=== PATIENT | male | born 1960 | race Two or more races ===

== ENCOUNTER 2017-07-24 09:06 | Outpatient (CLI) | payer OTHER ==
[2017-07-24 10:01] LABS: HEMOGLOBIN 15.7 g/dL (12.0-18.0); MEAN CORPUSCULAR HEMOGLOBIN 32 pg (27-31); MEAN CORPUSCULAR HGB CONC 33 g/dL (33-37); MEAN CORPUSCULAR VOLUME 95 fL (80-94); PLATELET COUNT (AUTO) 151 K/uL (140-450); RED BLOOD CELL COUNT(AUTO) 4.94 MIL/uL (4.20-6.10); RED CELL DISTRIBUTION WIDTH 11.9 % (11.6-13.7); WHITE BLOOD COUNT (AUTO) 5.5 K/uL (4.8-10.8)
[2017-07-24 10:34] LABS: ANION GAP 10.1 (8-16); CARBON DIOXIDE 29.3 mmol/L (21-32); CHOL/HDL RATIO 3.8 (1-4.5); POTASSIUM 4.4 mmol/L (3.5-5.1); THYROID STIMULATING HORMONE 1.88 uIU/mL (0.34-3.74); TOTAL BILIRUBIN 1.2 mg/dL (0.0-1.0)
[2017-07-24 10:38] LABS: EOSINOPHILS % (MANUAL) 10 % (0-4); LYMPHOCYTES % (MANUAL) 33 % (20-46); MONOCYTES % (MANUAL) 4 % (5-12)
== END 2017-07-24 19:27 | disposition home or self-care (01) ==
LOC: MLB 09:06
DX: E11.9 Type 2 diabetes mellitus without complications (principal); N40.0 Benign prostatic hyperplasia without lower urinary tract symptoms
CPT/HCPCS: 36415; 80053; 82043; 82272; 83036; 84154; 84443; 85025

== ENCOUNTER 2019-05-09 09:44 | Outpatient (CLI) | payer OTHER ==
[2019-05-09 11:27] LABS: BASOPHILS % (AUTO) 0.9 % (0.0-2.0); EOSINOPHILS # (AUTO) 0.2 K/uL (0-0.4); EOSINOPHILS % (AUTO) 4.6 % (0.0-4.0); HEMATOCRIT 43.6 % (36-52); HEMOGLOBIN 14.8 g/dL (12.0-18.0); LYMPHOCYTES # (AUTO) 1.6 K/uL (2.0-11.5); LYMPHOCYTES % (AUTO) 33.4 % (20.5-51.1); MEAN CORPUSCULAR HEMOGLOBIN 33 pg (27-31); MEAN CORPUSCULAR HGB CONC 34 g/dL (33-37); MEAN CORPUSCULAR VOLUME 95.9 fL (80-94); MONOCYTES # (AUTO) 0.5 K/uL (0.8-1.0); MONOCYTES % (AUTO) 10.4 % (1.7-9.3); NEUTROPHILS # (AUTO) 2.4 K/uL (1.8-7.7); NEUTROPHILS % (AUTO) 50.7 % (42.2-75.2); PLATELET COUNT (AUTO) 136 K/uL (140-450); RED BLOOD CELL COUNT(AUTO) 4.54 MIL/uL (4.20-6.10); RED CELL DISTRIBUTION WIDTH 12.9 % (11.6-13.7); WHITE BLOOD COUNT (AUTO) 4.7 K/uL (4.8-10.8)
[2019-05-09 13:34] LABS: ALBUMIN 4.3 g/dL (3.4-5.0); ANION GAP 10.6 (8-16); CARBON DIOXIDE 27.8 mmol/L (21-32); CHOL/HDL RATIO 3.9 (1-4.5); CREATININE 1.1 mg/dL (0.7-1.3); POTASSIUM 4.4 mmol/L (3.5-5.1); THYROID STIMULATING HORMONE 2.23 uIU/mL (0.34-3.74); TOTAL BILIRUBIN 1.1 mg/dL (0.0-1.0)
== END 2019-05-09 21:50 | disposition home or self-care (01) ==
LOC: MLB 09:44
DX: I10 Essential (primary) hypertension (principal); N40.0 Benign prostatic hyperplasia without lower urinary tract symptoms; E05.90 Thyrotoxicosis, unspecified without thyrotoxic crisis or storm
CPT/HCPCS: 36415; 80053; 82272; 84154; 84443; 85025

== ENCOUNTER 2019-10-28 09:14 | Emergency (ER) | payer OTHER ==
[~2019-10-28] VITALS: Ht 172.7 cm; Wt 94.8 kg
[2019-10-28 09:19] VITALS: BP 151/98
--- NOTE | 2019-10-28 09:23 | NUR ---
AMB BED 02 STEADY GAIT
--- NOTE | 2019-10-28 09:36 | NUR ---
PT C/O RT FOOD PAIN S/P SLIPPED AND TWISTED TOES ON RT FOOT 2 WEEKS AGO. DID NOT FALL AND HIT GROUND. PATIENT STATES PAIN OF 7/10 AT THIS TIME; VSS; PATIENT POSITIONED FOR COMFORT; HOB ELEVATED; BEDRAILS UP X1; BED DOWN. ER MD MADE AWARE OF PT STATUS.
--- NOTE | 2019-10-28 10:40 | NUR ---
Dr. Salvador is evaluating the patient at bedside.
[2019-10-28 10:51] VITALS: BP 138/89
--- NOTE | 2019-10-28 10:51 | NUR ---
Patient discharged with v/s stable. Written and verbal after care instructions given and explained. Patient alert, oriented and verbalized understanding of instructions. Ambulatory with steady gait. All questions addressed prior to discharge. ID band removed. Patient advised to follow up with PMD. Rx of Motrin and [place] given. Patient educated on indication of medication including possible reaction and side effects. Opportunity to ask questions provided and answered.
== END 2019-10-28 10:51 | disposition home or self-care (01) ==
LOC: MED 09:14
DX: S90.121A Contusion of right lesser toe(s) without damage to nail, initial encounter (principal); X58.XXXA Exposure to other specified factors, initial encounter; Y93.89 Activity, other specified; Y92.89 Other specified places as the place of occurrence of the external cause; Y99.8 Other external cause status
CPT/HCPCS: 73630; 99283

== ENCOUNTER 2022-09-05 08:50 | Emergency (ER) | payer OTHER ==
[~2022-09-05] VITALS: Ht 177.8 cm; Wt 96.2 kg
[2022-09-05 08:57] VITALS: BP 151/89
--- NOTE | 2022-09-05 09:03 | NUR ---
Pt ambulated to bed 02 with steady/even gait.
[2022-09-05 10:15] VITALS: BP 139/79
--- NOTE | 2022-09-05 10:16 | NUR ---
Patient discharged with v/s stable. Written and verbal after care instructions given and explained. Patient verbalized understanding. Ambulatory with steady gait. All questions addressed prior to discharge. Advised to follow up with PMD.
== END 2022-09-05 10:15 | disposition home or self-care (01) ==
LOC: MED 08:50
DX: S43.401A Unspecified sprain of right shoulder joint, initial encounter (principal); W07.XXXA Fall from chair, initial encounter; Y93.89 Activity, other specified; Y92.89 Other specified places as the place of occurrence of the external cause; Y99.8 Other external cause status
CPT/HCPCS: 73030; 99283; Q0092

== ENCOUNTER 2022-12-10 08:27 | Outpatient (CLI) | payer OTHER ==
[2022-12-10 09:27] LABS: BASOPHILS % (AUTO) 1.1 % (0.0-2.0); EOSINOPHILS # (AUTO) 0.3 K/uL (0-0.4); EOSINOPHILS % (AUTO) 5.7 % (0.0-4.0); HEMATOCRIT 44.9 % (36-52); HEMOGLOBIN 15.3 g/dL (12.0-18.0); LYMPHOCYTES # (AUTO) 1.5 K/uL (2.0-11.5); LYMPHOCYTES % (AUTO) 32.9 % (20.5-51.1); MEAN CORPUSCULAR HEMOGLOBIN 32 pg (27-31); MEAN CORPUSCULAR HGB CONC 34 g/dL (33-37); MEAN CORPUSCULAR VOLUME 94.3 fL (80-94); MONOCYTES # (AUTO) 0.5 K/uL (0.8-1.0); MONOCYTES % (AUTO) 10.9 % (1.7-9.3); NEUTROPHILS # (AUTO) 2.2 K/uL (1.8-7.7); NEUTROPHILS % (AUTO) 49.4 % (42.2-75.2); PLATELET COUNT (AUTO) 124 K/uL (140-450); RED BLOOD CELL COUNT(AUTO) 4.76 MIL/uL (4.20-6.10); RED CELL DISTRIBUTION WIDTH 12.8 % (11.6-13.7); WHITE BLOOD COUNT (AUTO) 4.5 K/uL (4.8-10.8)
[2022-12-10 10:47] LABS: ALBUMIN 4.4 g/dL (3.4-5.0); CARBON DIOXIDE 30.4 mmol/L (21-32); CHOL/HDL RATIO 3.4 (1-4.5); CREATININE 1.1 mg/dL (0.6-1.3); POTASSIUM 4.4 mmol/L (3.5-5.1); THYROID STIMULATING HORMONE 1.54 uIU/mL (0.34-3.74); TOTAL BILIRUBIN 1.1 mg/dL (0.0-1.0)
[2022-12-11 08:08] LABS: PROSTATE SPEC AG TOTAL 0.8 ng/mL (0.0-4.0)
== END 2022-12-10 19:41 | disposition home or self-care (01) ==
LOC: MLB 08:27
PROVIDERS: ATTEND Internal Medicine
DX: E55.9 Vitamin D deficiency, unspecified (principal); E78.2 Mixed hyperlipidemia
CPT/HCPCS: 36415; 80053; 82272; 82306; 83036; 84153; 84443; 85025

== ENCOUNTER 2024-07-29 09:49 | Emergency (ER) | payer OTHER ==
[~2024-07-29] VITALS: Ht 177.8 cm; Wt 93.4 kg
[2024-07-29 10:10] VITALS: BP 158/85; PULSE 65; RESP 15; TEMP 98.6; O2SAT 98
[2024-07-29] MEDS: LIDOCAINE MPF 1% 10 MG/ML VIAL INJ ONE ×2 (13:05→13:06)
[2024-07-29] MEDS ORDERED: IBUP-2213 PO (13:24)
[2024-07-29 13:32] VITALS: BP 132/70; PULSE 78; RESP 20; TEMP 97.3; O2SAT 98
== END 2024-07-29 13:34 | disposition home or self-care (01) ==
LOC: MED 09:49
DX: L60.0 Ingrowing nail (principal); R03.0 Elevated blood-pressure reading, without diagnosis of hypertension; Z79.899 Other long term (current) drug therapy
CPT/HCPCS: 11730; 73130; 99284; J2003; Q0092